=== PATIENT | male | born 1985 | race Caucasian/White ===

== ENCOUNTER 2017-02-04 10:02 | Emergency (ER) | payer SELFPAY ==
[~2017-02-04] VITALS: Ht 182.9 cm; Wt 86.2 kg
[2017-02-04 10:37] VITALS: BP 133/98
== END 2017-02-04 10:49 | disposition home or self-care (01) ==
LOC: ER 10:02
DX: F32.9 Major depressive disorder, single episode, unspecified (principal); Z76.0 Encounter for issue of repeat prescription

== ENCOUNTER 2018-12-14 19:35 | Emergency (ER) | payer MEDICAID ==
[~2018-12-14] VITALS: Ht 182.9 cm; Wt 77.1 kg
[2018-12-14 20:09] LABS: Urine WBC None Seen /hpf (0 - 3)
[2018-12-14 20:44] LABS: Urine Bacteria NONE SEEN /hpf (None Seen); Urine Blood Negative /uL (Negative); Urine Mucus FEW (None Seen); Urine Specific Gravity 1.033 (1.001-1.035)
[2018-12-14 20:52] LABS: Amphetamine Screen, Urine NEGATIVE (NEGATIVE); Barbiturate Scree,Urine NEGATIVE (NEGATIVE); Benzodiazephine Screen, Urine POSITIVE (NEGATIVE); Cannabinoid Screen, Urine POSITIVE (NEGATIVE); Cocaine Screen, Urine POSITIVE (NEGATIVE); Phencyclidine Screen, Urine NEGATIVE (NEGATIVE)
[2018-12-14 21:00] LABS: Basophils # (auto) 0.1 uL; Basophils % (auto) 0.5 % (0.0-2.0); Eosinophils # (auto) 0 uL; Hematocrit 50.7 % (41.0-53.0); Hemoglobin 17.6 g/dL (13.5-17.5); Lymphocytes # (auto) 1.4 uL; Lymphocytes % (auto) 6.3 % (10.0-50.0); Mean Corpuscular Hemoglobin 31.1 pg (28.0-32.0); Mean Corpuscular Hgb Conc. 34.7 g/dL (32.0-36.0); Mean Corpuscular Volume 89.6 fL (80.0-100.0); Monocytes # (auto) 1.3 uL; Monocytes % (auto) 5.9 % (0.0-12.0); Neutrophils # (auto) 19.3 uL; Neutrophils % (auto) 87.3 % (37.0-80.0); Nucleated Red Blood Cells % 0.1 %; Platelet Count (auto) 204 10^3/uL (140-450); Red Blood Cells 5.66 10^6/uL (4.5-5.90); Red Cell Distribution Width 12.3 % (11.8-14.3)
[2018-12-14 21:00] LABS: Opiate Scree,Urine POSITIVE (NEGATIVE)
[2018-12-14] MEDS ORDERED: ONDANSETRON HCL 4 MG/2 ML VIAL IV ONE (21:00)
[2018-12-14] MEDS ORDERED: SODIUM CHLORIDE 0.9% 1,000 ML IV ONE (21:00)
[2018-12-14 21:14] LABS: Potassium 3.7 mmol/L (3.5-5.1)
[2018-12-14 21:21] LABS: Albumin 4.2 g/dL (3.4-5.0); BUN/Creatinine Ratio 20.4; Bilirubin, Total 0.8 mg/dL (0.2-1.0); Calcium 10.5 mg/dL (8.5-10.1); Total Protein 8.5 g/dL (6.4-8.2)
[2018-12-14] MEDS ORDERED: NALBUPHINE HCL 10 MG/1ml INJECTION IV ONE (21:45)
[2018-12-14] MEDS ORDERED: FAMOTIDINE (10MG/ML) 2ML VL IV ONE (21:45)
[2018-12-14 22:10] LABS: Anion Gap 53.5 (5-15)
[2018-12-14] MEDS ORDERED: PROMETHAZINE HCL 25 MG/ML 1ML IV ONE (22:45)
[2018-12-14 22:53] VITALS: BP 127/79
== END 2018-12-15 00:05 | disposition left against medical advice (07) ==
LOC: ER 19:39
DX: K85.90 Acute pancreatitis without necrosis or infection, unspecified (principal); R11.2 Nausea with vomiting, unspecified; F14.10 Cocaine abuse, uncomplicated; F11.10 Opioid abuse, uncomplicated; Z53.29 Procedure and treatment not carried out because of patient's decision for other reasons
CPT/HCPCS: 36415; 80053; 80307; 81001; 83690; 85025; 93005; 96361; 96374; 96375; 99284; J2300; J2405; J2550; J3490; J7030

== ENCOUNTER 2020-07-28 13:41 | Emergency (ER) | payer MEDICAID ==
[~2020-07-28] VITALS: Ht 182.9 cm; Wt 81.6 kg
[2020-07-28 13:45] VITALS: BP 123/74
[2020-07-28] MEDS ORDERED: SODIUM CHLORIDE 0.9% 500 ML IVB ONE (14:30)
[2020-07-28] MEDS ORDERED: SODIUM CHLORIDE 0.9% 1,000 ML IV ONE (14:30)
== END 2020-07-28 14:51 | disposition left against medical advice (07) ==
LOC: ER 13:41 → EDBD 13:41 → ER 14:51
DX: R56.9 Unspecified convulsions (principal)